=== PATIENT | female | born 1975 | race Asian ===

== ENCOUNTER 2017-11-03 06:32 | Day surgery (SDC) | payer BC ==
[2017-11-01 15:40] VITALS: BMI 27.3
--- NOTE | 2017-11-02 19:48 | HP ---
DATE OF ADMISSION: DATE OF SURGERY: 11/03/2017 ADMISSION DIAGNOSIS: Chronic sinusitis, inferior turbinate hypertrophy. HISTORY OF PRESENT ILLNESS: This 42-year-old female has had longstanding nasal and sinus symptoms. She also has known allergies with a history of immunotherapy. She complains of nasal congestion, drainage, post nasal drainage, sinus infection, and sinus pain. This has been year around. Her symptoms have been present for at least 15 years. She has had recurrent antibiotics and also has associated chronic sore throat, facial pain and cheek pain. Sense of smell is satisfactory. She has been found to have chronic sinusitis and is now admitted for surgery. PAST MEDICAL HISTORY: Primary medical doctor is . She does have history of asthma, allergies, hypothyroidism, and prior vertigo. She has undergone cholecystectomy in the past. No allergies to medications. Current medications include fluticasone nasal spray, and she has had cefdinir intermittently. PHYSICAL EXAMINATION: General: Patient is a well developed female, in no distress. HEENT: Head is normal. Eyes are clear. Ears are unremarkable. There is no middle ear fluid. The nasal dorsum is intact. The nasal septum has some deviation, and there is also inferior turbinate hypertrophy. There is small polyp in the right nasal cavity and polypoid degeneration of both middle turbinates. The oral cavity and oropharynx are unremarkable. CT scan of the paranasal sinuses reported [facility] in June 2017 is abnormal, indicating chronic sinusitis especially involving both ethmoid sinuses, especially involving both ethmoid sinuses, left greater than right, maxillary sinus, right sphenoid sinus, left frontal sinus. There is also inferior turbinate hypertrophy with obstruction. IMPRESSION: Chronic sinusitis, inferior turbinate hypertrophy. PLAN: Endoscopic sinus surgery to address ethmoid sinuses, sphenoid sinuses, frontal sinus, and possible turbinate submucous resection. INFORMED CONSENT: Patient understands the indications, alternatives, nature of risks and benefits of proposed surgery. Potential complications including but not limited to anesthesia, bleeding, infection, recurrence, numbness, hole in the septum, reduced sense of smell, eye injury, or brain injury, were discussed in detail. She understands and accepts these risks and wished to proceed with surgery. Questions were answered fully. NIHARIKA JOHNSON M.D. LIDYA/[id number]
[~2017-11-03 06:32] MED LIST: BACITRACIN 15 GM TUBE TOPICAL OINTMENT TP ONE
[2017-11-03] MEDS ORDERED: SUCCINYLCHOLINE CHLORIDE 200 MG/10 ML VIAL ONE (07:28)
[2017-11-03] MEDS ORDERED: ROCURONIUM BROMIDE 50 MG/5 ML VIAL ONE (07:28)
[2017-11-03] MEDS ORDERED: PROPOFOL 20 ML ONE (07:28)
[2017-11-03] MEDS ORDERED: MIDAZOLAM HCL 2 MG/2 ML SINGLE DOSE VIAL ONE (07:29)
[2017-11-03] MEDS ORDERED: DEXAMETHASONE SOD PHOSPHATE 4 MG/1 ML VIAL ONE (07:29)
[2017-11-03] MEDS ORDERED: LIDOCAINE HCL/PF 2% SDV 5ML VIAL ONE (07:31)
[2017-11-03] MEDS ORDERED: BACITRACIN 15 GM TUBE TOPICAL OINTMENT ONE (07:44)
[2017-11-03] MEDS ORDERED: LIDOCAINE 1%/EPI 1:100000 (20 ML MULTI DOSE VIAL) ONE (07:44)
--- NOTE | 2017-11-03 08:03 | HP ---
History & Physical Update - History History: No Change - Physical Physical: No Change - Assessment Assessment: No Change - Plan Plan: No Change
[2017-11-03] MEDS ORDERED: COCAINE HCL 4% TOPICAL SOLUTION 4 ML BOTTLE TP ONE ×2 (08:25→08:33)
[2017-11-03] MEDS ORDERED: LIDOCAINE 1%/EPI 1:100000 (20 ML MULTI DOSE VIAL) IJ ONE ×2 (08:51)
[2017-11-03] MEDS ORDERED: ONDANSETRON 4 MG/2 ML VIAL IVPUSH PRN (10:07)
[2017-11-03] MEDS ORDERED: oxyCODONE HCL 5 MG TABLET PO PRN ×2 (10:07)
[2017-11-03] MEDS ORDERED: LACTATED RINGERS SOLUTION 1,000 ML IV SCH (10:15)
--- NOTE | 2017-11-03 10:42 | OP ---
Operative Note - Note: Operative Date: 11/03/17 (75609) Pre-Operative Diagnosis: chronic pansinusitis, turbinate hypertrophy Operation: bilateral endoscopic ethmoidectomy, anterior and posterior, bilateral endoscopic maxillary antrostomy with removal of tissue left, left frontal sinus exploration, right endoscopic sphenoidotomy, image guidance, bilateral inferior turbinate outfracture with mural cauterization Findings: chronic sinusitis, large cyst left maxillary sinus, bilateral middle turbinate hypertrophy, bilateral inferior turbinate hypertrophy (soft tissue) Post-Operative Diagnosis: Same as Pre-op Surgeon: Alvin Russell Anesthesiologist/STENOGRAPHIC COURT REPORTER: Sowmya Valdez Anesthesia: General Specimens Removed: left ethmoid and middle turbinate, left maxillary sinus. right ethmoid and middle turbinate Estimated Blood Loss (mls): 5 Drains & Tubes with Location: none Blood Volume Replaced (mls): 0 Operative Report Dictated: Yes
[2017-11-03 11:50] VITALS: TEMP 98.3
[2017-11-03] MEDS ORDERED: ACETAMINOPHEN 500 MG TABLET (FP) ONE (14:48)
[2017-11-03] MEDS ORDERED: ACETAMINOPHEN 500 MG TABLET (FP) PO ONE ×2 (14:50→15:02)
[2017-11-03 15:19] VITALS: BP 137/78; PULSE 64
--- NOTE | 2017-11-04 07:56 | OP ---
DATE OF OPERATION: 11/03/2017 PREOPERATIVE DIAGNOSIS: Chronic pansinusitis, turbinate hypertrophy. POSTOPERATIVE DIAGNOSIS: Chronic pansinusitis, turbinate hypertrophy. PROCEDURE: Bilateral endoscopic ethmoidectomy, anterior and posterior, bilateral endoscopic maxillary antrostomy with removal of tissue left, left frontal sinus exploration endoscopic, right endoscopic sphenoidotomy, partial resection of bilateral middle turbinates image guidance, bilateral inferior turbinate outfracture with mural cauterization. SURGEON: Niharika Russell MD ARCHITECTURE PROFESSOR: , [employer] ANESTHESIA: General via endotracheal tube. INDICATIONS: This 42-year-old female who has had longstanding nasal and sinus symptoms which have failed to improve with maximal medical therapy. She has nasal obstruction as well as sinus pain and pressure and purulent nasal drainage. Examination demonstrates turbinate hypertrophy and pus, especially from the left middle meatus. CT scan of the paranasal sinuses demonstrates chronic pansinusitis with especially prominent disease in the left maxillary sinus with near opacification. There is also extensive bilateral ethmoid sinus disease as well as right sphenoid and left frontal disease. Turbinates are hypertrophic and obstructive. She is now brought to surgery for treatment. FINDINGS: Chronic sinusitis, ethmoid and maxillary, with large cyst in the left maxillary sinus, obstruction of the left frontal and right sphenoid drainage pathways, bilateral middle turbinate hypertrophy with obstruction and bilateral inferior turbinate hypertrophy with obstruction. Septum is relatively straight. Nasopharynx unremarkable. DESCRIPTION OF PROCEDURE: Patient was brought to the operating room and placed on the operating table in supine position. General endotracheal anesthesia was induced to a satisfactory level. She was prepped and draped in the usual fashion for surgery. Cocaine 4% was placed topically on pledgets bilaterally. Her CT scan data was utilized with the [employer] Navigation System. She was registered and the navigation system was used intermittently throughout the case to identify surgical landmarks and guide surgical dissection. Pledgets were removed. Lidocaine 1% with epinephrine 1:100,000 was infiltrated in the bilateral middle turbinates as well as the lateral nasal wall. Additional cocaine 4% was packed within the middle meatuses. Active purulence was seen in the posterior left middle meatus, and culture was obtained and sent to microbiology. The left middle turbinate was medialized. The uncinate process was elevated and excised. Anterior and then posterior ethmoidectomy was performed utilizing the ethmoid forceps and the Xomed microdebrider. The lamina papyracea and the fovea ethmoidalis were removed. Diseased tissue was removed. Dissection proceeded posteriorly until the face of the sphenoid was identified. Attention was then turned to the left maxillary sinus. The antrostomy was enlarged with backbiting forceps. The 70-degree telescope was utilized. The sinus was nearly filled with a large cyst. Giraffe forceps were then used to grasp and remove the cyst tissue. Primarily, thin serous fluid was encountered, but there were also areas of very thick mucoid fluid and some polypoid areas. This continued under endoscopic guidance until all accessible tissue was removed, the maxillary sinus was aerated. Finally, on the left side, attention was turned to the frontal recess. Again utilizing the 70-degree telescope and the curved suction and giraffe forceps, anterior ethmoid cells and agger nasi cell was removed. The frontal recess was then identified. The frontal sinus seeker was then utilized and it was able to be passed easily into the left frontal sinus. There was some obstructive tissue of the left middle turbinate, and so it was partially resected anteroinferiorly with the curved scissors. The remnant was cauterized. Attention was then turned towards the right paranasal sinuses. The middle turbinate was medialized. No pus was seen. The uncinate process was drawn forward and then removed. Anterior and then posterior ethmoidectomy was performed utilizing the ethmoid forceps and the Xomed microdebrider again. The lamina papyracea and the fovea ethmoidalis were preserved. Dissection continued posteriorly until the face of the sphenoid sinus was identified. Attention was then turned towards the right sphenoid sinus. The sphenoethmoid recess was explored and obstructing tissue removed. The sphenoid ostium was identified enlarged. No pus or lesion was seen through the ostium. Next, the right maxillary sinus was addressed. The antrostomy was enlarged with the backbiting forceps. The anterior of the sinus was then visualized with the 70-degree telescope and showed minimal mucosal edema. There was no pus or irreversible lesion identified. There was definite obstructive tissue from the right middle turbinate, and this was resected with the endoscopic scissors anteroinferiorly. Again, the remnant was cauterized. Finally, the inferior turbinates were addressed. CT scan showed that this was primarily soft tissue obstruction. Therapeutic outfracture was performed by fracturing it medially and then displacing it laterally bilaterally. Finally mural cauterization was performed with the suction cautery on coagulation mode and in an island fashion. Excellent airway improvement was obtained. Final inspection demonstrated open sinuses, more open inferior airways, and complete hemostasis. NasoPore dressing was placed in the ethmoid sinuses and against the middle turbinate remnants. Inferior airways were patent and were left unpacked. Patient tolerated the procedure well. She was then awakened from general anesthesia and transferred to PACU in stable condition. ESTIMATED BLOOD LOSS: 5 mL. She received Crystalloid during the procedure. SPECIMENS: Included left middle turbinate and ethmoid, left maxillary sinus tissue and right middle turbinate and ethmoid tissue, which were sent to Pathology for routine studies. COMPLICATIONS: There were no complications. NIHARIKA RUSSELL M.D. LIDYA/[id number]
--- NOTE | 2017-11-05 09:37 | PATH ---
Surgical Pathology Report Patient Name: MICHAEL PERKINS [facility]. Rec. #: [id number] /Age/Gender: 1975 (Age: 42) / F Account: [id number] Location: [facility] SURGICAL Taken: 11/03/2017 Received: 11/03/2017 Reported: 11/05/2017 Physicians: Alvin Russell M.D. Specimen(s) Received A: LEFT ETHMOID TISSUE AND LEFT MIDDLE TURBINATES B: LEFT MAXIILLARY TISSUE C: RIGHT ETHMOID TISSUE AND RIGHT MIDLE TURBINATES Clinical History Chronic ethmoid, sphenoid, maxillary, frontal sinusitis Final Diagnosis A. LEFT ETHMOID SINUS AND MIDDLE TURBINATE, CURETTING: ACUTE AND CHRONIC SINUSITIS. B. LEFT MAXILLARY SINUS, CURETTING: CHRONIC SINUSITIS. C. RIGHT ETHMOID SINUS AND MIDDLE TURBINATE, CURETTING: CHRONIC SINUSITIS. Electronically Signed Abdirashid Tom M.D. Gross Description A. Received in formalin labelled "left ethmoid tissue and left middle turbinate" is a 2.5 x 2.0 x 0.3 cm aggregate of banda tissue along with bony and cartilaginous tissue. Totally submitted in one cassette for light decalcification. B. Received in formalin labelled "left maxillary tissue" is a 2.5 x 1.5 x 0.3 cm aggregate of banda tissue fragments with possible admixed bony tissue. Totally submitted in one cassette for light decalcification. C. Received in formalin labelled "right ethmoid and middle turbinate tissue " is a 2.5 x 2 x 0.3 cm aggregate of banda tissue fragments and bony material. Totally submitted one cassette for light decalcification. [facility]/11/03/2017 [facility]/11/03/2017
== END 2017-11-03 15:44 | disposition home or self-care (01) ==
LOC: JASU-SURG 06:32
PROVIDERS: ATTEND Otolaryngology
PROC: 09TV8ZZ Resection of Left Ethmoid Sinus, Via Natural or Artificial Opening Endoscopic (ICD-10-PCS; 2017-11-03)
PROC: 09TU8ZZ Resection of Right Ethmoid Sinus, Via Natural or Artificial Opening Endoscopic (ICD-10-PCS; 2017-11-03)
PROC: 099Q8ZZ Drainage of Right Maxillary Sinus, Via Natural or Artificial Opening Endoscopic (ICD-10-PCS; 2017-11-03)
PROC: 09SL8ZZ Reposition Nasal Turbinate, Via Natural or Artificial Opening Endoscopic (ICD-10-PCS; 2017-11-03)
PROC: 099R8ZZ Drainage of Left Maxillary Sinus, Via Natural or Artificial Opening Endoscopic (ICD-10-PCS; 2017-11-03)
PROC: 099Q8ZZ Drainage of Right Maxillary Sinus, Via Natural or Artificial Opening Endoscopic (ICD-10-PCS; 2017-11-03)
PROC: 09JY8ZZ Inspection of Sinus, Via Natural or Artificial Opening Endoscopic (ICD-10-PCS; 2017-11-03)
PROC: 8E09XBZ Computer Assisted Procedure of Head and Neck Region (ICD-10-PCS; principal; 2017-11-03 08:00)
DX: J32.4 Chronic pansinusitis (principal); J34.3 Hypertrophy of nasal turbinates; J34.89 Other specified disorders of nose and nasal sinuses
CPT/HCPCS: 84703; 87070; 87075; 87186; 87205

== ENCOUNTER 2020-12-17 14:51 | Emergency (ER) | payer BC ==
[2020-12-17 15:00] VITALS: BP 118/81; PULSE 65; TEMP 97.9; BMI 33.0
== END 2020-12-17 15:58 | disposition home or self-care (01) ==
LOC: JERFT 14:51
DX: M54.5 Low back pain (principal); G89.29 Other chronic pain
CPT/HCPCS: 99283-25; 99285-25

== ENCOUNTER 2021-01-29 20:59 | Emergency (ER) | payer BC ==
[2021-01-29 21:26] VITALS: BP 123/80; PULSE 107; TEMP 98; BMI 31.2
[2021-01-29] MEDS ORDERED: ALBUTEROL SO4 2.5/IPRATROPIUM 0.5 INH SOL 3 ML VIAL.NEB. NEB ONE (23:00)
[2021-01-29] MEDS ORDERED: DEXAMETHASONE SOD PHOSPHATE 10 MG/1 ML VIAL IM ONE (23:02)
[2021-01-30] MEDS ORDERED: ALBUTEROL SO4 2.5/IPRATROPIUM 0.5 INH SOL 3 ML VIAL.NEB. NEB ONE (00:16)
[2021-01-30] MEDS ORDERED: DEXAMETHASONE SOD PHOSPHATE 10 MG/1 ML VIAL ONE (00:16)
== END 2021-01-30 00:54 | disposition home or self-care (01) ==
LOC: JERFT 20:59 → JER 20:59
PROC: 3E0F7GC Introduction of Other Therapeutic Substance into Respiratory Tract, Via Natural or Artificial Opening (ICD-10-PCS; principal; 2021-01-29)
PROC: 3E023GC Introduction of Other Therapeutic Substance into Muscle, Percutaneous Approach (ICD-10-PCS; 2021-01-29)
DX: J20.9 Acute bronchitis, unspecified (principal)
CPT/HCPCS: 71046-TC-FY; 93005; 93010; 99284-25; J1100

== ENCOUNTER 2022-04-14 18:54 | Emergency (ER) | payer OTHER, BC ==
[2022-04-14 19:46] VITALS: BP 126/81; PULSE 96; RESP 16; TEMP 98.1; BMI 29.2
[2022-04-14] MEDS ORDERED: METHOCARBAMOL 500 MG TABLET PO ONE (20:03)
[2022-04-14] MEDS ORDERED: IBUPROFEN 600 MG TABLET (FP) PO ONE ×2 (20:03→20:09)
[2022-04-14] MEDS ORDERED: METHOCARBAMOL 500 MG TABLET ONE (20:10)
== END 2022-04-14 21:51 | disposition home or self-care (01) ==
LOC: JER 18:54 → JERFT 18:54
DX: M54.50 Low back pain, unspecified (principal); V49.50XA Passenger injured in collision with unspecified motor vehicles in traffic accident, initial encounter
CPT/HCPCS: 99283-25

== ENCOUNTER 2023-10-20 12:37 | Inpatient (IN) | payer BC, OTHER ==
[2023-10-20] MEDS ORDERED: ONDANSETRON 4 MG/2 ML VIAL ONE (13:54)
[2023-10-20] MEDS ORDERED: FAMOTIDINE 20 MG/50 ML IVPB 20 MG/50 ML MG IVPB ONE (13:54)
[2023-10-20] MEDS ORDERED: ACETAMINOPHEN INJECTION 100 ML IVPB ONE (13:54)
[2023-10-20 14:02] LABS: BASO % 0.7 % (0-2.0); EOS % 0.1 % (0-4.5); HEMATOCRIT 40.8 % (32.4-45.2); HEMOGLOBIN 13.8 GM/dL (10.7-15.3); LYMPH % 9.5 % (8-40); MCH 30.3 pg (25.7-33.7); MCHC 33.8 g/dl (32.0-36.0); MEAN CELL VOLUME 89.8 fl (80-96); MEAN PLT VOLUME 7.1 fl (7.5-11.1); MONO % 2.9 % (3.8-10.2); NEUT % 86.8 % (42.8-82.8); PLATELET COUNT 297 10^3/uL (134-434); RBC 4.54 M/mm3 (3.60-5.2); RDW 12.9 % (11.6-15.6)
[2023-10-20] MEDS: FAMOTIDINE 20 MG/50 ML IVPB 20 MG/50 ML MG IVPB ONE (14:05)
[2023-10-20] MEDS: ONDANSETRON 4 MG/2 ML VIAL IVPUSH ONE (14:05)
[2023-10-20] MEDS: SODIUM CHLORIDE 0.9% 500 ML INFUS.BAG IV ONE (14:05)
[2023-10-20] MEDS: ACETAMINOPHEN 1000 MG/100 ML BAG IVPB ONE (14:05)
[2023-10-20] MEDS: SUCRALFATE 1 GM/10 ML UNIT DOSE CUPS PO ONE (14:06)
[2023-10-20] MEDS ORDERED: SUCRALFATE 1 GM TABLET (FP) ONE (14:08)
[2023-10-20] MEDS: SUCRALFATE 1 GM TABLET (FP) PO ONE (14:09)
[2023-10-20 14:23] LABS: CALCIUM 9.2 mg/dL (8.5-10.1)
[2023-10-20 14:24] LABS: ALBUMIN 4.1 g/dl (3.4-5.0); BLOOD UREA NITROGEN 5.5 mg/dL (7-18); MAGNESIUM 2.2 mg/dL (1.8-2.4)
[2023-10-20 14:24] LABS: EPI CELLS >36 /uL (0-25.1); HYALINE CASTS 2 /uL (0-3.1); URINE APPEARANCE CLOUDY; URINE BILIRUBIN NEGATIVE (NEGATIVE); URINE COLOR YELLOW; URINE GLUCOSE (UA) NEGATIVE (NEGATIVE); URINE KETONE 3+ (NEGATIVE); URINE LEUK ESTERASE NEGATIVE (NEGATIVE); URINE NITRITE POSITIVE (NEGATIVE); URINE PROTEIN TRACE (NEGATIVE); URINE RBC 404 /uL (0-23.9); URINE UROBILINOGEN 0.2 mg/dL (0.2-1.0); URINE WBC 23 /uL (0-25.8)
[2023-10-20 14:27] LABS: CREATININE 0.6 mg/dL (0.55-1.3)
[2023-10-20 14:28] LABS: TOT PROT 7.1 g/dl (6.4-8.2)
[2023-10-20 15:04] LABS: URINE BACTERIA 1030.1 /uL (0-1359)
[2023-10-20] MEDS: MAG HYDROX/AL HYDROX/SIMETH -MYLANTA- ORAL SUSPENSION PO ONE (16:19)
[2023-10-20] MEDS ORDERED: PANTOPRAZOLE SODIUM 40 MG VIAL ONE (16:42)
[2023-10-20] MEDS ORDERED: CEFTRIAXONE 1 GM/50 ML BAG ONE (16:42)
[2023-10-20] MEDS: CEFTRIAXONE 1,000 MG in DEXTROSE 5%-WATER - 50 ML IVPB ONE (16:45)
[2023-10-20] MEDS: PANTOPRAZOLE SODIUM 40 MG VIAL IVPUSH ONE (16:45)
[2023-10-20] MEDS ORDERED: morphine SULFATE 4 MG/ML VIAL ONE (17:03)
[2023-10-20] MEDS: morphine CARPU-JECT 4 MG/1 ML DISP.SYRIN IVPUSH ONE (17:07)
[2023-10-20 23:19] VITALS: BMI 30.1
[2023-10-21] MEDS: ONDANSETRON 4 MG/2 ML VIAL IVPUSH PRN (01:49)
[2023-10-21] MEDS: ACETAMINOPHEN 1000 MG/100 ML BAG IVPB PRN (01:49)
[2023-10-21] MEDS: DEXTROSE 5%-0.45% SALINE 1,000 ML IV SCH (01:50)
[2023-10-21] MEDS: traMADol HCL 50 MG TABLET PO ONE (02:52)
[2023-10-21] MEDS: CEFTRIAXONE 1 GM in DEXTROSE 5%-WATER - 50 ML IVPB SCH (09:52)
[2023-10-21] MEDS: PANTOPRAZOLE SODIUM 40 MG VIAL IVPUSH SCH (09:52)
[2023-10-21 10:02] LABS: BASO % 0.4 % (0-2.0); EOS % 0.1 % (0-4.5); HEMATOCRIT 39.7 % (32.4-45.2); HEMOGLOBIN 13.3 GM/dL (10.7-15.3); LYMPH % 9.9 % (8-40); MCH 30.1 pg (25.7-33.7); MCHC 33.5 g/dl (32.0-36.0); MEAN CELL VOLUME 89.7 fl (80-96); MEAN PLT VOLUME 7.3 fl (7.5-11.1); MONO % 3.9 % (3.8-10.2); NEUT % 85.7 % (42.8-82.8); PLATELET COUNT 293 10^3/uL (134-434); RBC 4.42 M/mm3 (3.60-5.2); WHITE BLOOD COUNT 10.9 K/mm3 (4.0-10.0)
[2023-10-21 10:19] LABS: POTASSIUM 3.4 mmol/L (3.5-5.1)
[2023-10-21 10:23] LABS: BLOOD UREA NITROGEN 4.8 mg/dL (7-18); CALCIUM 8.1 mg/dL (8.5-10.1)
[2023-10-21 10:27] LABS: CREATININE 0.5 mg/dL (0.55-1.3)
[2023-10-21] MEDS: KETOROLAC TROMETHAMINE 15 MG/ML VIAL IVPUSH PRN (12:23)
[2023-10-22] MEDS: POTASSIUM CHLORIDE ORAL LIQUID 20 MEQ/15 ML PO ONE (21:16)
[2023-10-23 08:52] LABS: BASO % 0.8 % (0-2.0); EOS % 0.9 % (0-4.5); HEMATOCRIT 41.9 % (32.4-45.2); HEMOGLOBIN 14.8 GM/dL (10.7-15.3); LYMPH % 21.4 % (8-40); MCH 30.8 pg (25.7-33.7); MCHC 35.2 g/dl (32.0-36.0); MEAN CELL VOLUME 87.6 fl (80-96); MEAN PLT VOLUME 7.3 fl (7.5-11.1); NEUT % 68.9 % (42.8-82.8); PLATELET COUNT 306 10^3/uL (134-434); RBC 4.79 M/mm3 (3.60-5.2); RDW 12.7 % (11.6-15.6); WHITE BLOOD COUNT 9.1 K/mm3 (4.0-10.0)
[2023-10-23 09:09] LABS: POTASSIUM 3.9 mmol/L (3.5-5.1)
[2023-10-23 09:16] LABS: ALBUMIN 3.4 g/dl (3.4-5.0); CALCIUM 8.1 mg/dL (8.5-10.1)
[2023-10-23 09:17] LABS: BLOOD UREA NITROGEN 3.4 mg/dL (7-18); CREATININE 0.5 mg/dL (0.55-1.3)
[2023-10-23 09:19] LABS: BILIRUBIN,TOTAL 0.6 mg/dL (0.2-1); TOT PROT 6.5 g/dl (6.4-8.2)
[2023-10-23] MEDS: METOCLOPRAMIDE HCL INJECTION 10 MG/2 ML VIAL IVPB SCH (12:21)
[2023-10-23 17:31] LABS: POTASSIUM 3.8 mmol/L (3.5-5.1)
[2023-10-23 17:32] LABS: CALCIUM 8.1 mg/dL (8.5-10.1)
[2023-10-23 17:33] LABS: BLOOD UREA NITROGEN 4.4 mg/dL (7-18)
[2023-10-23 17:36] LABS: CREATININE 0.6 mg/dL (0.55-1.3)
[2023-10-24 10:07] LABS: POTASSIUM 4.7 mmol/L (3.5-5.1)
[2023-10-24 10:11] LABS: CALCIUM 8.5 mg/dL (8.5-10.1)
[2023-10-24 10:12] LABS: BLOOD UREA NITROGEN 5.4 mg/dL (7-18)
[2023-10-24 10:15] LABS: CREATININE 0.6 mg/dL (0.55-1.3)
[2023-10-24] MEDS: SODIUM CHLORIDE 1,000 ML IV SCH (13:52)
[2023-10-24 18:40] VITALS: RESP 18
[2023-10-25 10:31] LABS: POTASSIUM 4.2 mmol/L (3.5-5.1)
[2023-10-25 10:34] LABS: ALBUMIN 3.2 g/dl (3.4-5.0); CALCIUM 8.5 mg/dL (8.5-10.1)
[2023-10-25 10:37] LABS: CREATININE 0.6 mg/dL (0.55-1.3)
[2023-10-25 10:39] LABS: BILIRUBIN,TOTAL 0.8 mg/dL (0.2-1); TOT PROT 6.3 g/dl (6.4-8.2)
[2023-10-25] MEDS: KETOROLAC TROMETHAMINE 30 MG/1 ML VIAL IVPUSH ONE (12:07)
[2023-10-25] MEDS: DEXTROSE 5%-WATER - 1,000 ML IV SCH (16:53)
[2023-10-25] MEDS: ACETAMINOPHEN 1000 MG/100 ML BAG IVPB PRN (19:55)
[2023-10-26] MEDS ORDERED: cefTRIAXone SODIUM 1 GM VIAL ONE (08:38)
[2023-10-26 09:27] LABS: BASO % 1.1 % (0-2.0); EOS % 4.1 % (0-4.5); HEMATOCRIT 42.1 % (32.4-45.2); HEMOGLOBIN 14.1 GM/dL (10.7-15.3); LYMPH % 30.7 % (8-40); MCHC 33.4 g/dl (32.0-36.0); MEAN CELL VOLUME 89.8 fl (80-96); MEAN PLT VOLUME 7.2 fl (7.5-11.1); MONO % 9.7 % (3.8-10.2); NEUT % 54.4 % (42.8-82.8); PLATELET COUNT 309 10^3/uL (134-434); RBC 4.69 M/mm3 (3.60-5.2); RDW 13.3 % (11.6-15.6); WHITE BLOOD COUNT 7.7 K/mm3 (4.0-10.0)
[2023-10-26 09:44] LABS: POTASSIUM 4.2 mmol/L (3.5-5.1)
[2023-10-26 09:51] LABS: CALCIUM 8.8 mg/dL (8.5-10.1)
[2023-10-26 09:53] LABS: ALBUMIN 3.3 g/dl (3.4-5.0)
[2023-10-26 09:56] LABS: CREATININE 0.5 mg/dL (0.55-1.3)
[2023-10-26 09:57] LABS: BILIRUBIN,TOTAL 0.7 mg/dL (0.2-1); TOT PROT 6.2 g/dl (6.4-8.2)
[2023-10-26] MEDS: DEXTROSE 5%-WATER - 1,000 ML IV SCH (14:45)
[2023-10-27 07:03] VITALS: BP 104/64
[2023-10-27 09:02] VITALS: PULSE 79; TEMP 98.8
[2023-10-27 09:55] LABS: CALCIUM 8.5 mg/dL (8.5-10.1)
[2023-10-27 09:57] LABS: ALBUMIN 3.3 g/dl (3.4-5.0); BLOOD UREA NITROGEN 9.2 mg/dL (7-18)
[2023-10-27 09:59] LABS: CREATININE 0.7 mg/dL (0.55-1.3)
[2023-10-27 10:00] LABS: BILIRUBIN,TOTAL 0.3 mg/dL (0.2-1)
[2023-10-27 10:01] LABS: TOT PROT 6.1 g/dl (6.4-8.2)
== END 2023-10-27 13:18 | disposition home or self-care (01) | DRG 392 ==
LOC: JER 12:37 → JERBED 16:58 → J5S 18:19 → OBSVTOIN 10-22 15:02
PROVIDERS: ADMIT Internal Medicine; ATTEND Internal Medicine
DX: R10.13 Epigastric pain (principal); N39.0 Urinary tract infection, site not specified; E87.1 Hypo-osmolality and hyponatremia; F31.9 Bipolar disorder, unspecified; N83.292 Other ovarian cyst, left side; R11.2 Nausea with vomiting, unspecified; Z87.11 Personal history of peptic ulcer disease
CPT/HCPCS: 0241U-QW; 36415; 74177-TC; 76830-TC; 76856-TC; 80048; 80053; 81003; 83605; 83690; 83735; 83930; 84703; 85025; 86140; 86304; 87086; 93005; 93010; 99285-25; G0378; J0131; Q9967